=== PATIENT | male | born 1980 | race Caucasian/White ===

== ENCOUNTER 2017-06-04 12:34 | Day surgery (SDC) | payer BC ==
[2017-06-04] MEDS: GABAPENTIN 300 MG CAP PO ×2 (13:29→21:26)
[2017-06-04] MEDS: LR 1,000 ML IV ×2 (13:29→19:30)
[2017-06-04] MEDS: CelecoXIB (CeleBREX) 100 MG CAP PO (13:29)
[2017-06-04] MEDS ORDERED: BUPIVACAINE HCL 0.25% 30 ML VIAL As Ordered (16:11)
[2017-06-04] MEDS ORDERED: MIDAZOLAM INJ 2 MG/2 ML VIAL (J2250) As Ordered (16:28)
[2017-06-04] MEDS ORDERED: fentaNYL 100 MCG/2 ML INJECTION (J3010) As Ordered ×3 (16:28→19:08)
[2017-06-04] MEDS ORDERED: PHENYLEPHRINE INJ 10MG/ML VIAL (J2370) As Ordered (17:00)
[2017-06-04] MEDS ORDERED: dexameTHASONE 4 MG/ML 1ML VIAL (J1100) As Ordered (17:08)
[2017-06-04] MEDS ORDERED: ePHEDrine INJ 50 MG/ML VIAL As Ordered (17:17)
[2017-06-04] MEDS: LIDOCAINE W/EPINEPHRINE 1% 20ML VIAL As Ordered (17:24)
[2017-06-04] MEDS ORDERED: ROCURONIUM BROMIDE 50 MG/5 ML VIAL As Ordered (17:24)
[2017-06-04] MEDS: THROMBIN SOLN 20,000 UNITS KIT As Ordered (17:28)
[2017-06-04] MEDS: BACITRACIN PWD 50,000 UNITS VIAL As Ordered (17:29)
[2017-06-04] MEDS ORDERED: NEOSTIGMINE 10 MG/10 ML VIAL (J2710) As Ordered (18:39)
[2017-06-04] MEDS ORDERED: GLYCOPYRROLATE INJ 0.2 MG/ML 2 ML VIAL As Ordered (18:39)
[2017-06-04] MEDS ORDERED: ONDANSETRON 4MG/2ML VIAL (J2405) As Ordered (18:40)
[2017-06-04] MEDS: BUPIVACAINE HCL 0.25% 10 ML VIAL As Ordered (18:45)
[2017-06-04] MEDS: BUPIVACAINE LIPOSOME/PF 1.3% 20 ML VIAL (13.3MG/ML)(EXPAREL) As Ordered (18:45)
[2017-06-04] MEDS ORDERED: HYDROmorphone HCL 1 MG/ML SYRINGE (J1170) IV (19:15)
[2017-06-04] MEDS: fentaNYL 100 MCG/2 ML INJECTION (J3010) IV ×4 (19:15→19:40)
[2017-06-04] MEDS ORDERED: traMADol 50 MG TAB PO (19:30)
[2017-06-04] MEDS ORDERED: PROMETHAZINE INJ 25 MG/ML VIAL (J2550) IV (19:30)
[2017-06-04] MEDS: D5W/LR 1,000 ML IV (19:30)
[2017-06-04] MEDS ORDERED: ONDANSETRON 4MG/2ML VIAL (J2405) IV (19:30)
[2017-06-04] MEDS: traMADol 50 MG TAB PO (21:27)
[2017-06-04] MEDS: METAMUCIL (PSYLLIUM) PACKET PO (21:27)
[2017-06-05] MEDS: CYCLOBENZAPRINE 10 MG TAB PO (01:56)
[2017-06-05] MEDS: D5W/LR 1,000 ML IV (05:30)
[2017-06-05] MEDS: traMADol 50 MG TAB PO ×2 (05:55→11:06)
[2017-06-05] MEDS: METAMUCIL (PSYLLIUM) PACKET PO (09:00)
[2017-06-05] MEDS: CelecoXIB (CeleBREX) 100 MG CAP PO (09:13)
== END 2017-06-05 12:00 | disposition home or self-care (01) ==
LOC: M SDC 12:34 → M MS5PR 20:30
DX: M51.27 Other intervertebral disc displacement, lumbosacral region (principal); R20.0 Anesthesia of skin; Z79.899 Other long term (current) drug therapy
CPT/HCPCS: 63030